=== PATIENT | male | born 1935 | race Caucasian/White ===

== ENCOUNTER 2019-06-24 09:38 | Observation (INO) | payer MEDICARE, OTHER ==
--- NOTE | 2019-06-24 10:00 | ED ---
Shortness of Breath - HPI Summary HPI Summary: 84-year-old male with a significant past medical history of hypertension, type 2 diabetes who is currently a PUI for Covid-19 presents to the emergency department today complaining of increased shortness of breath over the past few weeks. Patient states his breathing is acutely worse today. patient complains of fatigue, nonproductive cough, 9 pound weight gain in the past several months. Patient states at rest his breathing is controlled however with exertion he becomes significantly short of breath. Patient denies fevers, sore throat, nasal congestion, chest pain, bone pain, pain with urination, nausea, vomiting, diarrhea. - History of Current Complaint Chief Complaint: EDShortnessOfBreath Time Seen by Provider: 06/24/19 09:40 Hx Obtained From: Patient Onset/Duration: Gradual Onset Timing: Constant Current Severity: Mild Dyspnea At: Exertion Aggravating Factors: Movement Alleviating Factors: Upright Position Associated Signs & Symptoms: Cough (Nonproductive) - Allergy/Home Medications Allergies/Adverse Reactions: Allergies Allergy/AdvReac Type Severity Reaction Status Date / Time No Known Allergies Allergy Verified 05/30/15 07:07 Home Medications: Home Medications Allopurinol [Zyloprim] 300 mg PO DAILY 05/21/15 [History Confirmed 06/24/19] Amlodipine Besylate [Norvasc-] 10 mg PO DAILY 05/21/15 [History Confirmed ] Atorvastatin* [Lipitor 40 MG*] 40 mg PO DAILY 06/24/19 [History Confirmed ] Cholecalciferol TAB* [Vitamin D TAB*] 1 tab PO DAILY 06/24/19 [History Confirmed 06/24/19] Folic Acid 0.4 mg PO DAILY 06/24/19 [History Confirmed 06/24/19] Sitagliptin Phosphate [Januvia] 100 mg PO DAILY 06/24/19 [History Confirmed 06/09] Tamsulosin CAP* [Flomax CAP*] 0.4 mg PO DAILY 06/24/19 [History Confirmed ] Telmisartan/Hydrochlorothiazid [Telmisartan-Hctz 80-25 mg Tab] 1 tab PO DAILY [History Confirmed 06/24/19] glyBURIDE TAB* [Diabeta TAB*] 10 mg PO DAILY 06/24/19 [History Confirmed ] metFORMIN* [Glucophage 500 MG TAB *] 1,000 mg PO BID 06/24/19 [History Confirmed 06/24/19] PMH/Surg Hx/FS Hx/Imm Hx Endocrine/Hematology History: Reports: Hx Diabetes - TYPE 2 Cardiovascular History: Reports: Hx Hypertension - CONTROL WITH MEDS Denies: Hx Pacemaker/ICD History: Denies: Hx Renal Disease Musculoskeletal History: Reports: Other Musculoskeletal History - DEGENERATIVE DISC DISEASE Sensory History: Reports: Hx Cataracts - BILATERAL, Hx Contacts or Glasses - GLASSES Denies: Hx Hearing Aid Opthamlomology History: Reports: Hx Cataracts - BILATERAL, Hx Contacts or Glasses - GLASSES Psychiatric History: Denies: Hx Panic Disorder - Cancer History Cancer Type, Location and Year: [facility] - Surgical History Surgery Procedure, Year, and Place: TONSILECTOMY. HEMORROIDECTOMY. MELONOMA REMOVED FROM [facility] - 2011 Hx Anesthesia Reactions: No Infectious Disease History: No Infectious Disease History: Denies: Traveled Outside the [place] in Last 30 Days - Social History Alcohol Use: None Substance Use Type: Reports: None Smoking Status (MU): Former Smoker Type: Cigarettes Have You Smoked in the Last Year: No Review of Systems Constitutional: Negative Eyes: Negative ENT: Negative Cardiovascular: Negative Positive: Shortness Of Breath, Cough Gastrointestinal: Negative Genitourinary: Negative Musculoskeletal: Negative Skin: Negative Neurological/Mental Status: Negative Psychological: Normal All Other Systems Reviewed And Are Negative: Yes Physical Exam - Summary Physical Exam Summary: Patient is in no acute distress. Patient is able to speak with no accessory muscle use in full and broken sentences at rest. No wheezing or stridor is noted. Trachea midline. Patient is acyanotic. There is rales noted in the lower lung bases bilaterally with diminished breath sounds in the upper lobes. No wheezing noted. Triage Information Reviewed: Yes Vital Signs On Initial Exam: Initial Vitals Temp Pulse Resp BP Pulse Ox 98.1 F 94 18 127/65 96 06/24/19 09:53 06/24/19 09:53 06/24/19 09:53 06/24/19 09:53 06/24/19 09:53 Vital Signs Reviewed: Yes Appearance: Positive: Well-Appearing, No Pain Distress, Well-Nourished Skin: Positive: Warm, Skin Color Reflects Adequate Perfusion Eyes: Positive: EOMI, CLAUDETTE ENT: Positive: Hearing grossly normal Respiratory/Lung Sounds: Positive: Breath Sounds Present, Decreased Breath Sounds, Rales. Negative: Stridor, Tracheal Deviation, Wheezes, Unable to speak in full sentences Cardiovascular: Positive: RRR, S1, S2 Abdomen Description: Positive: Nontender, Soft. Negative: Distended, Guarding Bowel Sounds: Positive: Present Musculoskeletal: Positive: Strength/ROM Intact Neurological: Positive: Sensory/Motor Intact, Alert, Oriented to Person Place, Time, Normal Gait, Facial Symmetry, Speech Normal Psychiatric: Positive: Normal, Affect/Mood Appropriate AVPU Assessment: Alert Procedures - Sedation Patient Received Moderate/Deep Sedation with Procedure: No Diagnostics - Vital Signs Vital Signs Temp Pulse Resp BP Pulse Ox 06/24/19 09:53 98.1 F 94 18 127/65 96 - Laboratory Result Diagrams: 06/24/19 10:06 06/24/19 10:06 Lab Statement: Any lab studies that have been ordered have been reviewed, and results considered in the medical decision making process. Course/Dx - Course Course Of Treatment: Patient was evaluated in the emergency department today for shortness of breath. Vitals noted stable. No evidence of STEMI. Normal sinus rhythm at a rate of 95 bpm. There is a noted right bundle-branch block as well as multiple PVCs. No T-wave inversions noted. No prior EKGs available for comparison. Chest xray shows no active cardiopulmonary disease. Labs returned showing no definitive white blood cell count of 5.5. There is mild anemia noted with an H&H of 11.4/34. Lactic acid 1.1. Troponin 0.01. No indication of cardiac insult. BUN 34, creatinine 1.74 suggestive of dehydration. BNP 196 which could suggest early heart failure. Hospitalist, Dr. Albert was consulted who agreed to consult on the patient. After consult hospitalist team agreed to admit patient for further evaluation and management. - Diagnoses Differential Diagnosis/HQI/PQRI: Positive: Airway Obstruction, CHF, COPD Exacerbation, ID, Pneumonia, Pulmonary Edema Provider Diagnoses: Shortness of breath - Physician Notifications Discussed Care of Patient With: Ashley Albert Instructed by Provider To: Admit As Inpatient Admit/Transition Orders Completed By ED Provider: No Discharge ED - Sign-Out/Discharge Documenting (check all that apply): Patient Departure - Discharge Plan Condition: Stable Disposition: ADMITTED TO [facility] - Billing Disposition and Condition Condition: STABLE Disposition: Admitted to [facility]
[2019-06-24 10:24] LABS: ABS Basophils 0.1 10^3/ul (0-0.2); ABS Eosinophils 0.2 10^3/ul (0-0.6); ABS Lymphocytes 0.5 10^3/ul (1.0-4.8); ABS Monocytes 0.5 10^3/ul (0-0.8); ABS Neutrophils 4.3 10^3/ul (1.5-7.7); Eosinophil % 3.5 %; Hematocrit 34 % (42-52); Hemoglobin 11.4 g/dL (14.0-18.0); Lymphocyte % 9.4 %; Mean Corpuscular HGB Conc 33 g/dL (31-36); Mean Corpuscular Hemoglobin 31 pg (27-31); Mean Corpuscular Volume 93 fL (80-94); Mean Platelet Volume 10.6 fL (7.4-10.4); Platelet Count 101 10^3/uL (150-450); Red Blood Count 3.65 10^6 /uL (4.18-5.48); Red Cell Distribution Width 15 % (10-15); White Blood Count 5.5 10^3/uL (3.5-10.8)
--- OUTSIDE RECORDS SUMMARY | 2019-06-24 10:27 | XMS REPORT | Summary of Care ---
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 Merry Andrews MD Primary Care Provider Reason for Visit Reason Comments Fatigue Encounter Details Date Type Department Care Team Description 06/23/2019 Office Visit [facility], Malaise and fatigue ( Primary Dx); Practice Merry Garcia MD Weakness; [address] Shortness of breath; [place] [address] [place] [address] Type 2 diabetes mellitus with retinopathy, without long-term current use of insulin, macular edema presence unspecified, unspecified laterality, unspecified retinopathy severity (HCC); [phone] Essential hypertension; Gout, unspecified cause, unspecified chronicity, unspecified site; Thrombocytopenia (HCC); Mild chronic anemia Allergies No Known Allergiesdocumented as of this encounter (statuses as of 06/23/2019) Medications Medication Sig Dispensed Refills Start Date End Date Status VITAMIN D, Take 1,000 Units 0 Active CHOLECALCIFEROL, PO by mouth. Glucose Blood In Vitro 1 Strip by In 25 Each 3 05/21/2018 Active Strip Vitro route TWICE DAILY. amLodipine (NORVASC) 10 TAKE ONE TABLET 90 Tab 3 09/21/2018 Active MG Oral Tab BY MOUTH EVERY DAY FOLIC ACID PO Take by mouth. 0 Active metFORMIN (GLUCOPHAGE) TAKE TWO TABLETS 360 Tab 2 03/08/2019 Active 500 MG Oral Tab TWO TIMES A DAY Telmisartan-HCTZ 80-25 TAKE ONE TABLET 90 Tab 0 06/06/2019 Active MG Oral TabIndications: BY MOUTH EVERY Essential hypertension DAY JANUVIA 100 MG Oral TAKE ONE TABLET 90 Tab 0 06/06/2019 Active TabIndications: Type 2 BY MOUTH EVERY diabetes mellitus DAY without complication, without long-term current use of insulin (HCC) Tamsulosin HCl (FLOMAX) TAKE TWO CAPSULES 180 Cap 0 06/06/2019 Active 0.4 MG Oral BY MOUTH EVERY CapIndications: Lower DAY urinary tract symptoms allopurinol (ZYLOPRIM) TAKE ONE TABLET 90 Tab 0 06/06/2019 Active 300 MG Oral BY MOUTH EVERY TabIndications: Gout, DAY unspecified cause, unspecified chronicity, unspecified site glipiZIDE (GLUCOTROL TAKE ONE TABLET 180 Tab 0 06/06/2019 Active XL) 10 MG Oral TABLET BY MOUTH TWICE A SR 24 HRIndications: DAY Type 2 diabetes mellitus without complication, without long-term current use of insulin (HCC) atorvastatin (LIPITOR) TAKE ONE TABLET 180 Tab 0 06/06/2019 Active 40 MG Oral BY MOUTH EVERY TabIndications: DAY Hyperlipidemia, unspecified hyperlipidemia type documented as of this encounter (statuses as of 06/23/2019) Active Problems Problem Noted Date HTN (hypertension) 02/01/2014 DM (diabetes mellitus), type 2 02/01/2014 Gout 02/01/2014 Meniere's disease of right ear 02/01/2014 Dermatophytoses 02/01/2014 Overview: Chronic of groin area Mild chronic anemia 02/01/2014 Anemia Overview: followed by Dr. Calvo per records from previous pcp Mild nonproliferative diabetic retinopathy Overview: follows with Dr. Barrett in [place]. 10/22/16 Hyperlipidemia Melanoma documented as of this encounter (statuses as of 06/23/2019) Immunizations Name Administration Dates Next Due Pneumococcal Conjugate(13 Valent) 08/18/2018 TDAP Vaccine 05/12/2017 documented as of this encounter Social History Tobacco Use Types Packs/Day Years Used Date Former Smoker Smokeless Tobacco: Current User Chew Comments: 20 years of pipe Alcohol Use Drinks/Week oz/Week Comments No Sex Assigned at Date Recorded Not on file documented as of this encounter Last Filed Vital Signs Not on filedocumented in this encounter Patient Instructions Patient InstructionsMerry Andrews MD - 06/23/2019 2:40 PM EDTPlease have laboratory tests, a chest xray and EKG done at my office. Please call for an appointment if my staff has not called you. I will send you results when in. Rest, stay hydrated. Please go to the [facility] mobile unit for Covid testing due to your malaise, fatigue, and shortness of breath. Instructions are below. Please go to the ER for any severe or persistent chest pain or heaviness, shortness of breath, any concerns about your heart or about pneumonia. Covid-19 Testing can be done by [facility] mobile unit for people who qualify. It is by appointment only. This is located at the Shops at [facility] parking lot in front of the old [address]. You must call the call center first to answer screening questions: [phone]. They will then give you instructions and an appointment time. Prior to going you need to register on line at [email or web address] documented in this encounter Progress Notes Merry Andrews MD - 06/23/2019 2:40 PM EDT Chief Complaint: Jatinder Garcia is a 84-y.o. male who presents for Virtual Visit for weakness. He is a prior Dr Galarza patient and new to me today. Visit conducted via: Computer Video and audio interactive virtual visit . In our efforts to minimize the spread of COVID-19 in our community, amongst our patients, healthcarestaff and providers, we have implemented virtual visits with our patients. No vital signs, physical exam or in-office diagnostics were completed during this visit. These items may be accomplished during subsequent visits. Any vital signs listed were provided by the patient on their home monitor. History of Present Illness/ROS: Patient is being evaluated today in a Virtual Visit, for which the patient consented by signing up and signing in for this visit. Patient called the office today complaining of: "Patient says he has been feeling tired with activity the past week Admits he has not been very active, has gained a few pounds the past month Denies fever, chills, nausea, vomiting, diarrhea Says he has been feeling intermittent, mild chest tightness and SOB with activity Denies contact with any persons positive for Covid 19 Trying to drink more water the past couple of days Has DM II -- checked BS yesterday morning, 160 -- this is alittle higher than normal Agreed to do virtual visit with Dr. Andrews this afternoon Transferred call to nurse to schedule virtual appointment Silvia Varela PA-C" ? ?He is diabetic, last saw Dr Galarza 02/15/2020, On metformin, glipizide and januvia Patient reports 2 or so weeks of fatigue, feeling weak, dyspnea on exertion with chest tightness taking deep breaths some days. None today but had it yesterday. He denies any chest pain otherwise. He has some malaise. His glucoses usually are good but were running 250 range last week. Improved this week. He is not sure why BP in pharmacy 2 weeks ago was 110/64 He has been home for the most part, but did go to the [facility] center last week Review of Systems - General ROS: positive for - fatigue and malaise negative for - chills or fever ENT ROS: negative for - nasal congestion or sore throat Respiratory ROS: positive for - shortness of breath and tightness or heaviness taking a deep breath,worsens with exertion negative for - cough or hemoptysis Cardiovascular ROS: positive for - dyspnea on exertion and chest tightness with deep breaths. No discomfort today, it is intermittent over the last 2 weeks or so, perhaps more. Prior to this he could walk on his treadmill easily but not the last 2 weeks. negative for - edema Gastrointestinal ROS: negative for - change in bowel habits, diarrhea or nausea/ vomiting Neurological ROS: no TIA or stroke symptoms positive for - general weakness described more as easy fatigue negative for - focal weakness, headache, numbness. Lab Results Component Value Date GLYCO 6.9 (H) 02/14/2019 GLYCO 6.8 (H) 08/18/2018 GLYCO 6.7 (H) 02/15/2018 Office Visit on 02/14/2019 Component Date Value Ref Range Status ? Uric Acid 02/14/2019 5.3 3.5 - 8.5 MG/DL Final ? WBC Count 02/14/2019 7.74 4.23 - 9.07 K/uL Final Methodology was changed 03/25/2018. Please note updated reference range and units. ? RBC Count 02/14/2019 4.22* 4.30 - 5.89 M/UL Final ? Hemoglobin 02/14/2019 13.1* 13.7 - 17.5 g/dL Final ? Hematocrit 02/14/2019 40.8 40.1 - 51.0 % Final ? MCV 02/14/2019 96.7* 79.0 - 92.2 FL Final ? MCH 02/14/2019 31.0 25.7 - 32.2 PG Final ? MCHC 02/14/2019 32.1* 32.3 - 36.5 g/dL Final ? Platelet Count 02/14/2019 119* 163 - 337 K/uL Final ? MPV 02/14/2019 12.9* 9.4 - 12.4 FL Final ? RDW 02/14/2019 13.5 11.6 - 14.4 % Final ? Glycohemoglobin A1C 02/14/2019 6.9* <=5.6 % Final Normal*: <=5.6% Pre Diabetes* Risk: 5.7-6.4% Diabetes* Risk: >=6.5% Glycemic Goals for Adult Diabetes*: <7.0% *(Adult Ranges)Canadian Diabetes Association, Standards of Medical Care in Diabetes, 2018 ? Sodium 02/14/2019 141 134 - 145 mmol/L Final ? Potassium 02/14/2019 3.7 3.5 - 5.1 mmol/L Final ? Chloride 02/14/2019 102 98 - 107 mmol/L Final ? CO2 02/14/2019 29 22 - 30 mmol/L Final ? Calcium 02/14/2019 9.8 8.3 - 10.1 mg/dl Final ? Albumin 02/14/2019 4.3 3.5 - 5.0 g/dl Final ? BUN 02/14/2019 28* 9 - 20 mg/dl Final ? Creatinine 02/14/2019 1.1 0.8 - 1.5 mg/dl Final ? Glucose 02/14/2019 208* 70 - 99 mg/dl Final ? Total Protein 02/14/2019 7.6 6.3 - 8.2 g/dl Final ? Total Bilirubin 02/14/2019 0.6 0.0 - 1.1 MG/DL Final ? AST 02/14/2019 29 17 - 59 U/L Final ? ALT 02/14/2019 31 21 - 72 U/L Final ? Alkaline Phosphatase 02/14/2019 78 40 - 150 U/L Final ? eGFR 02/14/2019 >60 See Interpretation Below ml/min/1.73ml Sq Final Estimated GFR Interpretation: Above 60ml/min/1.73m2 = Normal Renal Function 30-59 ml/min/1.73m2 = Stage 3 Chronic Kidney Disease 15-29 ml/min/1.73m2 = Stage 4 Chronic Kidney Disease Less than 15 ml/min/1.73m2 = Stage 5 Chronic Kidney Disease The GFR value is calculated using the Modification of Diet in Renal Disease ( MDRD) Study Equation which can be found at: https://www.kidney.org/content/xpya-ronpa-blqndoup ? BUN/Creatinine Ratio 02/14/2019 25* 6 - 22 RATIO Final ? Anion Gap 02/14/2019 10 3 - 11 mmol/L Final ? A/G Ratio 02/14/2019 1.3 0.8 - 2.0 ratio Final Past Medical History: Diagnosis Date ? Anemia followed by Dr. Calvo per records from previous pcp ? Diabetes mellitus (HCC) ? Essential (primary) hypertension ? Gout ? Hyperlipidemia ? Leukopenia ? Lyme disease ? Melanoma (HCC) ? Meniere's disease of right ear ? Mild nonproliferative diabetic retinopathy (HCC) follows with Dr. Barrett in [place]. 10/22/16 History reviewed. No pertinent surgical history. Current Outpatient Medications: ? allopurinol (ZYLOPRIM) 300 MG Oral Tab, TAKE ONE TABLET BY MOUTH EVERY DAY, Disp: 90 Tab, Rfl: 0 ? amLodipine (NORVASC) 10 MG Oral Tab, TAKE ONE TABLET BY MOUTH EVERY DAY , Disp: 90 Tab, Rfl:3 ? atorvastatin (LIPITOR) 40 MG Oral Tab, TAKE ONE TABLET BY MOUTH EVERY DAY, Disp: 180 Tab, Rfl: 0 ? FOLIC ACID PO, Take by mouth., Disp: , Rfl: ? glipiZIDE (GLUCOTROL XL) 10 MG Oral TABLET SR 24 HR, TAKE ONE TABLET BY MOUTH TWICE A DAY, Disp: 180 Tab, Rfl: 0 ? Glucose Blood In Vitro Strip, 1 Strip by In Vitro route TWICE DAILY., Disp: 25 Each, Rfl: 3 ? JANUVIA 100 MG Oral Tab, TAKE ONE TABLET BY MOUTH EVERY DAY, Disp: 90 Tab, Rfl: 0 ? metFORMIN (GLUCOPHAGE) 500 MG Oral Tab, TAKE TWO TABLETS TWO TIMES A DAY, Disp: 360 Tab, Rfl: 2 ? Tamsulosin HCl (FLOMAX) 0.4 MG Oral Cap, TAKE TWO CAPSULES BY MOUTH EVERY DAY, Disp: 180 Cap, Rfl: 0 ? Telmisartan-HCTZ 80-25 MG Oral Tab, TAKE ONE TABLET BY MOUTH EVERY DAY , Disp: 90 Tab, Rfl: 0 ? VITAMIN D, CHOLECALCIFEROL, PO, Take 1,000 Units by mouth., Disp: , Rfl : No Known Allergies Social History Tobacco Use Smoking Status Former Smoker Smokeless Tobacco Current User ? Types: Chew Tobacco Comment 20 years of pipe Social History Substance and Sexual Activity Sexual Activity Not on file Lifestyle Physical activity ? Days per week: Not on file ? Minutes per session: Not on file Social History Social History Narrative Retired. Runs [email or web address] in summer. Spending time with grand kids. Gardening, yard work. Fishing. PHYSICAL EXAMINATION: Vital per patient home monitor: There were no vitals taken for this visit. Physical Examination: General appearance - alert, well appearing, and in no distress Mental status - alert, oriented to person, place, and time, normal mood, behavior, speech, dress, motor activity, and thought processes The remainder of the physical exam could not be done because this is a virtual visit. ASSESSMENT/PLAN: ICD-9-CM ICD-10-CM 1. Malaise and fatigue 780.79 R53.81 C-REACTIVE PROTEIN R53.83 THYROID STIMULATING HORMONE SEDIMENTATION RATE 2. Weakness 780.79 R53.1 3. Shortness of breath 786.05 R06.02 XR CHEST 2 VIEW PA AND LATERAL (STANDARD) AMBULATORY 12 LEAD EKG (GLOBAL) 4. Type 2 diabetes mellitus with retinopathy, without long-term current use of insulin, macular edema presence unspecified, unspecified laterality, unspecified retinopathy severity (HCC) 250.50 E11.319 GLYCOHEMOGLOBIN A1C 362.01 LIPID PROFILE MICROALBUMIN, RANDOM URINE W/ CREATININE 5. Essential hypertension 401.9 I10 COMPREHENSIVE METABOLIC PANEL W/REFLEX MAGNESIUM 6. Gout, unspecified cause, unspecified chronicity, unspecified site 274.9 M10.9 7. Thrombocytopenia (HCC) 287.5 D69.6 8. Mild chronic anemia 285.9 D64.9 CBC WITH DIFFERENTIAL VITAMIN B12 / FOLATE Patient Instructions Please have laboratory tests, a chest xray and EKG done at my office. Please call for an appointment if my staff has not called you. I will send you results when in. Rest, stay hydrated. Please go to the [facility] mobile unit for Covid testing due to your malaise, fatigue, and shortness of breath. Instructions are below. Please go to the ER for any severe or persistent chest pain or heaviness, shortness of breath, any concerns about your heart or about pneumonia. Covid-19 Testing can be done by [facility] mobile unit for people who qualify. It is by appointment only. This is located at the Shops at [facility] parking lot in front of the old [address]. You must call the call center first to answer screening questions: . They will then give you instructions and an appointment time. Prior to going you need to register on line at [email or web address] Time spent: 25 minutes Author: Merry Andrews MD 06/23/2019 15:50 documented in this encounter Plan of Treatment Date Type Specialty Care Team Description 06/24/2019 Ancillary Procedure Radiology 06/24/2019 Nurse/Clinical Support Internal Medicine 06/24/2019 Lab Internal Medicine 07/25/2019 Office Visit Family Practice Merry Andrews MD [address] [address] [phone] Name Type Priority Associated Diagnoses Order Schedule GLYCOHEMOGLOBIN A1C Lab Routine Type 2 diabetes Expected: mellitus with 06/23/2019 retinopathy, without (Approximate), long-term current use Expires: 06/22/2020 of insulin, macular edema presence unspecified, unspecified laterality, unspecified retinopathy severity (HCC) COMPREHENSIVE METABOLIC Lab Routine Essential hypertension Expected: PANEL W/REFLEX MAGNESIUM 06/23/2019 (Approximate), Expires: 12/20/2019 LIPID PROFILE Lab Routine Type 2 diabetes Expected: mellitus with 06/23/2019 retinopathy, without (Approximate), long-term current use Expires: 12/20/2019 of insulin, macular edema presence unspecified, unspecified laterality, unspecified retinopathy severity (HCC) MICROALBUMIN, RANDOM URINE Lab Routine Type 2 diabetes Expected: W/ CREATININE mellitus with 06/23/2019 retinopathy, without (Approximate), long-term current use Expires: 12/20/2019 of insulin, macular edema presence unspecified, unspecified laterality, unspecified retinopathy severity (HCC) CBC WITH DIFFERENTIAL Lab Routine Mild chronic anemia Expected: 06/23/2019 (Approximate), Expires: 06/22/2020 VITAMIN B12 / FOLATE Lab Routine Mild chronic anemia Expected: 06/23/2019 (Approximate), Expires: 06/22/2020 C-REACTIVE PROTEIN Lab Routine Malaise and fatigue Expected: 06/23/2019 (Approximate), Expires: 06/22/2020 THYROID STIMULATING Lab Routine Malaise and fatigue Expected: HORMONE 06/23/2019 (Approximate), Expires: 06/22/2020 XR CHEST 2 VIEW PA AND Imaging Routine Shortness of breath Expected: LATERAL (STANDARD) 06/23/2019, Expires: 06/22/2020 AMBULATORY 12 LEAD EKG EKG Routine Shortness of breath Ordered: 06/23/2019 (GLOBAL) SEDIMENTATION RATE Lab Routine Malaise and fatigue Expected: 06/23/2019 (Approximate), Expires: 06/22/2020 Health Maintenance Due Date Last Done Comments MEDICARE ANNUAL WELLNESS 12/18/2018 12/18/2017, 11/17/2016 VISIT HEMOGLOBIN A1C 08/15/2019 02/14/2019, 08/18/2018, 02/15/2018, Additional history exists DEPRESSION SCREENING 08/19/2019 08/18/2018 PNEUMOCOCCAL 65+YRS (2 of 2 08/19/2019 08/18/2018 - PPSV23) Diabetic Eye Exam 10/13/2019 10/12/2017, 10/12/2017, 08/22/2016 INFLUENZA VACCINE (Season 11/22/2019 Ended) FALL RISK ASSESSMENT 02/15/2020 02/14/2019, 02/14/2019 FOOT EXAM 02/15/2020 Postponed from 1955 (Other) HIV SCREENING 12/01/2025 Postponed from 1952 (Patient refused) ZOSTER IMMUNIZATION SERIES 11/29/2026 Postponed from (1 of 2) 1987 (Patient refused) DTaP/Tdap/Td Vaccines (2 - 05/12/2027 05/12/2017 Tdap) HEPATITIS A IMMUNIZATION Aged Out No longer eligible SERIES based on patient's age to complete this topic HPV IMMUNIZATION SERIES Aged Out No longer eligible based on patient's age to complete this topic MENINGOCOCCAL VACCINE IMM Aged Out No longer eligible based on patient's age to complete this topic documented as of this encounter Goals Goal Patient Goal Associated Recent Patient-Stated? Author Type Problems Progress Blood Pressure Blood Pressure 110/60 No Miguelangel Galarza < 140/90 (02/14/2019 DO Jose 10:28 AM EST) Note: This is an individualized treatment (blood pressure) goal for Jatinder Garcia: Displayed above (on the left) is your goal for blood pressure control. Your most recent blood pressure is also shown above, on the right. You should try to achieve blood pressures that are lower than your goal listed above (on the left). Glycohemoglobin A1c < 7.0 Diabetes 6.9 (02/14/2019 10:36 AM No Miguelangel Galarza DO EST) Note: This is an individualized treatment (diabetes control, HgbA1C) goal for Jatinder Garcia: Displayed above is your progress towards your HgbA1C goal. Your goal is shown above (on the left); your most recent HgbA1C is shown on the right. Note that lower numbers are better. Keep immunizations current Lifestyle No Miguelangel Galarza DO Note: This is an individualized lifestyle goal for Jatinder Garcia: Please be sure to keep up-to-date on recommended immunizations. For example, this would include a yearly influenza vaccine. Immunization status can be seen by looking at the Health Maintenance sections of your [facility], Plan of Care, and any After Visit Summaries. Take all prescribed medications as directed Self-management No Miguelangel Galarza DO Note: This is an individualized self-management goal for Jatinder Garcia: Please take all prescribed medications as directed. 1. Do not skip doses. If you cannot afford your medications, talk with your doctor. 2. Use a pill reminder system such as a pill box if needed. Your pharmacist can help you with this. 3. Contact your Pharmacy 5 days before your medication runs out. If you cannot take your medications for any reasons, talk with your doctor. 4. Please bring all of your medication bottles and inhalers (or a list of all your medications/inhalers) with you to every visit. Potential barriers to meeting all of your care plan goals will continue to be addressed on an ongoing basis. documented as of this encounter Results Not on filedocumented in this encounter Visit Diagnoses Diagnosis Malaise and fatigue Other malaise and fatigue Weakness Other malaise and fatigue Shortness of breath Type 2 diabetes mellitus with retinopathy, without long-term current use of insulin, macular edema presence unspecified, unspecified laterality, unspecified retinopathy severity (HCC) Essential hypertension Unspecified essential hypertension Gout, unspecified cause, unspecified chronicity, unspecified site Thrombocytopenia (HCC) Thrombocytopenia, unspecified Mild chronic anemia Anemia, unspecified documented in this encounter Insurance Payer Benefit Plan / Subscriber ID Effective Dates Phone Address Type Group MEDICARE MEDICARE PART A & B [id number] 2002-Present Medicare UHC EMPIRE UHC-EMPIRE PLAN [id number] 2016-Present [place] (Work) documented as of this encounter
[2019-06-24 10:41] LABS: Albumin 3.7 g/dL (3.2-5.2); Albumin/Globulin Ratio 1.2 (1-3); BUN/Creatinine Ratio 19.5 (8-20); C Reactive Protein 9.19 mg/L (<8.01); Calcium 9.3 mg/dL (8.6-10.3); EGFR African American 45.7 (>60); EGFR Non-African American 37.8 (>60); Potassium 3.7 mmol/L (3.5-5.0); Total Bilirubin 0.8 mg/dL (0.2-1.0); Total Protein 6.7 g/dL (6.4-8.9)
[2019-06-24 10:42] LABS: Troponin I 0.01 ng/mL (<0.03)
[2019-06-24] MEDS ORDERED: Furosemide IV* 10 MG/ML 10 ML VIAL (100 MG) IV ONE (12:13)
[2019-06-24] MEDS ORDERED: Al Hydrox/Mg Hydrox/Simet LIQ* 30 ML UDC PO PRN (12:15)
[2019-06-24] MEDS ORDERED: Senna TAB 8.6 mg* TAB PO PRN (12:15)
[2019-06-24] MEDS ORDERED: Acetaminophen TAB* 325 MG PO PRN (12:15)
[2019-06-24] MEDS ORDERED: Enoxaparin(*) 40 MG/0.4 ML SYR SUBCUT SCH (13:00)
[2019-06-24 13:06] LABS: Urine Appearance Clear; Urine Bilirubin Negative (Negative); Urine Blood Negative (Negative); Urine Color Yellow; Urine Glucose Negative (Negative); Urine Ketones Negative (Negative); Urine Nitrite Negative (Negative); Urine Protein Negative (Negative); Urine Specific Gravity 1.012 (1.010-1.030); Urine Urobilinogen Negative (Negative)
[2019-06-24] MEDS ORDERED: Potassium Chlor TAB* 20 MEQ TAB.ER PO ONE (13:33)
[2019-06-24] MEDS ORDERED: Dextrose 50% Syringe 50 ML* 25 GM/50 ML SYRINGE IV PUSH PRN (13:34)
--- NOTE | 2019-06-24 14:13 | ECHO ---
*[facility]* [place] [address] Fax #: [phone] Transthoracic Echocardiogram Patient: Jatinder Garcia : 1935 Study Date: 06/24/2019 Age: 84 Gender: M HR: 78 bpm Height: 70 in /177.8 cm BSA: 2.11 m^2 Weight: 204.6 lb /93 kg BMI: 29.4 kg/m^2 *[employer] Administrator: Siobhan Farr [facility] *Referring Physician: * O'Grazyna Esposito *Reading Physician: * Morteza Carmona MD Indications: SOB. History: Risk factors: Hypertension. Diabetes mellitus. Conclusions Summary: - Left ventricle: Systolic function is normal. The estimated ejection fraction is 60-65%. Wall motion is normal; there are no regional wall motion abnormalities. - Right ventricle: The cavity size is normal. Wall thickness is mildly increased. Study data: Transthoracic echocardiogram. Procedure: Transthoracic echocardiography was performed. Image quality was adequate. Complete 2D, spectral Doppler, and color flow Doppler. Location: Emergency department. Patient status: Inpatient. Patient room number: 18. No prior study is available for comparison. Rhythm: Normal sinus rhythm with PVC's. Findings Left ventricle: The cavity size is normal. Wall thickness is mildly increased. Systolic function is normal. The estimated ejection fraction is 60-65%. Wall motion is normal; there are no regional wall motion abnormalities. Doppler parameters are consistent with abnormal left ventricular relaxation (grade 1 diastolic dysfunction). Right ventricle: The cavity size is normal. Wall thickness is mildly increased. Systolic function is normal. Left atrium: The atrium is at the upper limits of normal in size. Right atrium: The atrium is mildly dilated. Mitral valve: The leaflets are mildly thickened. There is no evidence of stenosis. There is no significant regurgitation. Aortic valve: The annulus is mildly calcified. The leaflets are mildly thickened. There is no evidence of stenosis. There is no significant regurgitation. Tricuspid valve: The leaflets are normal thickness. There is no evidence of stenosis. There is no significant regurgitation. Pulmonic valve: Not well visualized. There is no significant regurgitation. Aorta: Aortic root: The aortic root is appears normal. Ascending aorta: The ascending aorta is poorly visualized. Aortic arch: The aortic arch is appears normal. Pericardium: A trace pericardial effusion is identified. Pulmonary arteries: Systolic pressure can not be accurately estimated. Systemic veins: Inferior vena cava: The vessel is dilated. There is (< 50%) respiratory change in the IVC dimension. Measurements Left ventricle Value Ref Right atrium continued Value Ref JANI, LAX 4.4 cm 4.2 - 5.8 ML dim, ES, A4C (H) 4.9 cm 2.6 - 4.4 ESD, LAX 3.4 cm 2.5 - 4.0 Estimated RAP 8 mm Hg --------- FS, LAX (L) 23 % 25 - 43 PW, ED, LAX (H) 1.3 cm 0.6 - 1.0 Aortic valve Value Ref E', lat lindsay, TDI (L) 8.4 cm/sec >=10.0 Lindsay diam, ED 2.1 cm - -------- E/e', lat lindsay, 12 Peak v, S 1.65 m/sec ---- ----- TDI VTI, S 33.2 cm --------- E', med lindsay, TDI 9.3 cm/sec >=7.0 Mean grad, S 7.0 mm Hg - -------- E/e', med lindsay, 11 Peak grad, S 11.0 mm Hg ---- ----- TDI E', avg, TDI 8.9 cm/sec Mitral valve Value Ref E/e', avg, TDI 11 <=14 Peak E 0.99 m/sec - -------- Peak A 0.89 m/sec --------- LVOT Value Ref Decel time 90 ms --------- Peak saleem, S 0.74 m/sec Peak grad, D 3.9 mm Hg --------- Mean grad, S 1 mm Hg Peak E/A ratio 1.1 --------- Ventricular septum Value Ref Aortic root Value Ref IVS, ED (H) 1.1 cm 0.6 - 1.0 Root diam 3.5 cm <4.2 Root max diam/bsa, 1.7 cm/m^2 1.3 - 2.1 Right ventricle Value Ref ED AW thickness, ED (H) 0.7 cm 0.1 - 0.5 JANI, LAX 2.9 cm Aortic arch Value Ref JANI minor ax, 3.4 cm 1.9 - 3.5 Arch diam 3.3 cm --------- A4C mid Arch diam/bsa 1.6 cm/m^2 --------- Left atrium Value Ref Decending aorta Value Ref AP dim, ES (H) 4.20 cm 3.00 - Stephanie peak saleem 0.71 m/sec --------- 4.00 ML dim, A4C 4.5 cm Inferior vena cava Value Ref SI dim, A4C 5.7 cm Diam 2.3 cm --------- Vol/bsa, ES, A/L 34 ml/m^2 16 - 34 Right atrium Value Ref SI dim, ES (H) 5.8 cm 3.4 - 5.3 Legend: (L) and (H) kallie values outside specified reference range. Prepared and electronically signed by Morteza Carmona MD 06/24/2019 14:11
--- NOTE | 2019-06-24 15:12 | HP ---
CC: Dr. Andrews * HISTORY AND PHYSICAL: DATE OF ADMISSION: 06/24/19 ATTENDING PHYSICIAN WHILE IN THE HOSPITAL: Dr. Ashley Albert * (dictated by JORGE Naidu). PRIMARY CARE PROVIDER: Dr. Andrews. CHIEF COMPLAINT: Progressive shortness of breath with exertion. HISTORY OF PRESENT ILLNESS: Mr. Garcia is an 84-year-old white male with past medical history significant for hypertension, diabetes, gout, and BPH, who presents to the emergency department today due to progressive shortness of breath with exertion. The patient started having shortness of breath with exertion about 2 weeks ago. It was initially when he was doing more vigorous activity like going up and down the stairs carrying groceries; however, on most recent days, it is including just when he is walking across his house. For this reason, he scheduled an appointment with his primary care office to discuss this and they advised him to go to the emergency department. He tells me that he feels chest tightness when he is short of breath, but that resolves when his shortness of breath resolves, which at this point is taking about 5 minutes after he each time he has been walking around. He denies cough, fevers , sore throat, nasal congestion, abdominal pain, nausea, vomiting, dizziness, lightheadedness, changes in vision. He states that he felt chills a few days ago, but not rigorous, and when he put in on his robes, he felt better. PAST MEDICAL HISTORY: 1. Hypertension. 2. Diabetes mellitus type 2. 3. Gout. 4. BPH. 5. Hyperlipidemia. PAST SURGICAL HISTORY: None. MEDICATIONS: Home medications: 1. Vitamin D 1 tablet p.o. daily. 2. Lipitor 40 mg p.o. daily. 3. Telmisartan/hydrochlorothiazide 80 mg/25 mg 1 tablet p.o. daily. 4. Glyburide 10 mg p.o. daily. 5. Metformin 1000 mg p.o. b.i.d. 6. Sitagliptin 100 mg p.o. daily. 7. Amlodipine 10 mg p.o. daily. 8. Folic acid 0.4 mg p.o. daily. 9. Tamsulosin 0.4 mg p.o. daily. 10. Allopurinol 300 mg p.o. daily. ALLERGIES: No known drug allergies. FAMILY HISTORY: The patient's father of stroke in his 60s. He had a history of diabetes. His mother of breast cancer. SOCIAL HISTORY: The patient lives with his . He smoked cigarettes for approximately 20 years and smoked a pipe for approximately 15 years. He denies alcohol use at this time, but previously used to drink regularly, but has been abstaining for the last 3 years. He denies illicit drug use. His surrogate medical decision maker should he need one is his , Adeola Diop. REVIEW OF SYSTEMS: AN 11-point review of systems was completed and all pertinent positives and negatives are above in the HPI. All other systems are negative. PHYSICAL EXAMINATION GENERAL: An overweight, elderly white male, lying in the hospital bed, appearing comfortable, in no distress. VITAL SIGNS: Temperature 98.1, heart rate 94, respiratory rate 18, oxygen saturation 90% on room air, but 88% on room air with ambulation, blood pressure 127/65. HEENT: Head: Normocephalic and atraumatic. Eyes: PERRL. Sclerae anicteric. ENT: Mucous membranes moist. LUNGS: Very faint crackles in the bilateral bases. Otherwise, no wheezing or rhonchi. He is not using accessory muscle with respiration. CARDIO: Regular rate and rhythm without murmurs, rubs, or gallops. ABDOMEN: Soft, nontender, nondistended. EXTREMITIES: Trace edema to the bilateral lower extremities pretibially. No clubbing or cyanosis. NEURO: The patient is alert and oriented x3. No focal deficits. Gait is within normal limits. SKIN: Warm, dry, and intact. PERTINENT STUDIES/LABORATORY DATA: White blood cell count 5.5, hemoglobin 11.4 , hematocrit 34, platelet count 101. Sodium 137, potassium 3.7, chloride 105, carbon dioxide 24, anion gap 8, BUN 34, creatinine 1.74, glucose 269, lactic acid 1.1, calcium 9.3. LFTs are unremarkable. CRP is 9.19. BNP is 196. Urinalysis is unremarkable. Chest x-ray per my interpretation appears there is bilateral interstitial pulmonary edema. The radiologist report impression is no active cardiopulmonary disease. EKG, it appears the patient has bifascicular block and PVCs and normal sinus rhythm at 95 beats per minute. I have no prior EKG for comparison. An EKG was taken at his primary care office today and was sent over and appears similar. ASSESSMENT AND PLAN: Mr. Garcia is an 84-year-old white male with past medical history significant for hypertension, diabetes mellitus type 2, BPH, and gout, who presents to the emergency department today due to progressive dyspnea on exertion. The patient will be admitted for: 1. Acute hypoxic respiratory failure. I believe this is secondary to congestive heart failure. I will order a transthoracic echocardiogram and one time dose of IV Lasix at this time and then I will schedule 40 mg of Lasix twice a day IV. The patient is hypoxic at rest and with exertion and I will put him on 2 L of nasal cannula and I will replace his potassium orally. I will order telemetry, strict I's and O's, and daily weights as well. The patient has gained approximately 9 pounds in about a month. Additionally, because he is having shortness of breath and he did report chills, but he is afebrile in the hospital, it would be of benefit to rule him out for COVID-19 as well and this is pending. 2. Diabetes. The patient takes metformin and glyburide at home. I am going to check hemoglobin A1c and I will order fingerstick, low carbohydrates in his diet, and lispro sliding scale while he is in the hospital. 3. Abnormal EKG. It appears the patient's EKG is demonstrating a bifascicular block. I do not have previous EKG prior to today to compare as the EKG that I got the recent was from today. I am going to put in an order to request an EKG from prior as the patient was seeing Dr. Galarza prior to switching to Dr. Andrews and this would be of benefit to determine if this maybe is contributing to his current state, and as previously mentioned, he will be on telemetry. 4. Hypertension. The patient is currently normotensive. I will continue his home amlodipine, hydrochlorothiazide, and NANI inhibitor. If his transthoracic echocardiogram shows that he is in fact with new heart failure, it would be a benefit for him to start a beta-regan and potentially one of these either hydrochlorothiazide or amlodipine may need to be discontinued for his blood pressure to tolerate. 5. BPH. I will be continuing the patient's home Flomax. 6. Hyperlipidemia. I will be continuing the patient's home atorvastatin. 7. FEN: The patient will have a carbohydrate consistent diet. I am replacing potassium as I described above with oral potassium. No need for IV fluids at this time, and in fact, we will try to avoid them in the setting of possible heart failure. 8. DVT prophylaxis. The patient has a VTE risk score of 3 and I will be ordering Lovenox. 9. Code status. The patient is a full code. TIME SPENT: Approximately 45 minutes was spent on this admission, approximately half this time was spent at bedside evaluating the patient and discussing the plan of care. This case has been reviewed by my attending, Dr. Ashley Albert, and she agrees with this plan of care. JORGE NAIDU [id number]/CPS #: [id number] MTDD
[2019-06-24] MEDS: Furosemide IV* 10 MG/ML VIAL (40 MG) IV SLOW PU SCH (16:53)
[2019-06-24] MEDS: Insulin LISPRO* 1 UNITS UNIT SUBCUT SCH (17:27)
[2019-06-25 06:51] LABS: BUN/Creatinine Ratio 18.7 (8-20); Calcium 9.3 mg/dL (8.6-10.3); EGFR African American 46.6 (>60); EGFR Non-African American 38.5 (>60); Potassium 3.4 mmol/L (3.5-5.0)
[2019-06-25 07:34] LABS: ABS Eosinophils 0.3 10^3/ul (0-0.6); ABS Lymphocytes 0.7 10^3/ul (1.0-4.8); ABS Monocytes 0.5 10^3/ul (0-0.8); ABS Neutrophils 2.7 10^3/ul (1.5-7.7); Eosinophil % 6.5 %; Hematocrit 32 % (42-52); Hemoglobin 11.2 g/dL (14.0-18.0); Lymphocyte % 16.6 %; Mean Corpuscular HGB Conc 35 g/dL (31-36); Mean Corpuscular Hemoglobin 32 pg (27-31); Mean Corpuscular Volume 91 fL (80-94); Mean Platelet Volume 9.8 fL (7.4-10.4); Platelet Count 85 10^3/uL (150-450); Red Blood Count 3.51 10^6 /uL (4.18-5.48); Red Cell Distribution Width 15 % (10-15); White Blood Count 4.2 10^3/uL (3.5-10.8)
[2019-06-25] MEDS: Furosemide IV* 10 MG/ML VIAL (40 MG) IV SLOW PU SCH (07:46)
[2019-06-25] MEDS: Insulin LISPRO* 1 UNITS UNIT SUBCUT SCH ×2 (07:46→12:43)
[2019-06-25] MEDS ORDERED: Potassium Chlor TAB* 20 MEQ TAB.ER PO ONE (08:43)
[2019-06-25] MEDS ORDERED: amLODIPine TAB* 5 MG PO SCH (09:00)
[2019-06-25] MEDS ORDERED: Losartan TAB* 25 MG PO SCH (09:00)
[2019-06-25] MEDS ORDERED: Hydrochlorothiazide TAB* 25 MG PO SCH (09:00)
[2019-06-25] MEDS ORDERED: Allopurinol TAB* 300 MG PO SCH (09:00)
[2019-06-25] MEDS ORDERED: Tamsulosin CAP* 0.4 MG PO SCH (09:00)
[2019-06-25] MEDS ORDERED: Atorvastatin* 40 MG TAB PO SCH (09:00)
[2019-06-25 12:24] VITALS: BP 114/44
--- NOTE | 2019-06-25 13:48 | DS ---
CC: Dr. Andrews DISCHARGE SUMMARY: DATE OF ADMISSION: 06/24/19 DATE OF DISCHARGE: 06/25/19 PRIMARY CARE PROVIDER: Dr. Andrews. DISCHARGE DIAGNOSES: 1. Dyspnea due to acute diastolic congestive heart failure. 2. The patient is tested for COVID and is pending at the time of this dictation. SECONDARY DIAGNOSES: 1. Elevated creatinine at 1.7 and the patient with unknown baseline. 2. Hypertension. 3. Gout. 4. Diabetes type 2. 5. Hyperlipidemia. MEDICATIONS AT DISCHARGE: New medications include Lasix 20 mg every other day with potassium chloride 20 mEq every other day. Rest of the remaining medications are unchanged from admission and include: 1. Glyburide 10 mg daily. 2. Vitamin D3 1000 units daily. 3. Atorvastatin 40 mg daily. 4. Telmisartan/hydrochlorothiazide 80/25 one tablet daily. 5. Metformin 1000 mg b.i.d. 6. Januvia 100 mg daily. 7. Amlodipine 10 mg daily. 8. Folic acid 0.4 mg daily. 9. Flomax 0.4 mg daily. 10. Allopurinol 300 mg daily. LABORATORY DATA AND STUDIES PERFORMED DURING THE HOSPITAL STAY: On 06/25/19, white blood cell count of 4.2, hemoglobin of 11.2, hematocrit of 32, and platelets of 85. Please note the patient has chronic thrombocytopenia. Sodium was 141, potassium 3.4, chloride 106, carbon dioxide 28, BUN 32, creatinine 1.71. Please note the patient's liver function tests on admission were unremarkable. C-reactive protein was 9.19, troponin of 0.01 at admission. Urinalysis was unremarkable. COVID testing is pending at the time of dictation. Transthoracic echocardiogram obtained on 06/24/19 showed EF of 60% to 65% with no regional wall motion abnormalities. The cavity of right ventricle is normal with wall thickness mildly increased, left systolic function is normal, and wall motion is normal. The mitral valve with mildly calcified annulus with no evidence of stenosis or regurgitation. Aortic valve with no problems noted. Chest x-ray on admission, impression: "No active cardiopulmonary disease." HOSPITALIZATION COURSE: Ame Garcia is an 84-year-old male who is a rather poor historian with a history of hypertension and diabetes, controlled with oral medications, who presented to the hospital complaining of shortness of breath with exertion for the past 2 weeks as well as unintentional weight gain of 9 pounds. The patient came into the emergency department sent from the patient's primary care provider's office with EKG that matched our EKG, it showed bifascicular block. His brain natriuretic peptide was 196 and his troponin was negative. His transthoracic echocardiogram failed to demonstrate any marked abnormalities, showed normal EF and no wall motion abnormality. His troponin was negative. The patient was treated with 2 doses of IV Lasix and diuresed 1500 mL total. His dyspnea on exertion resolved. His oxygenation improved, currently he is on room air and comfortable. He never developed chest pain throughout the past several weeks of his symptoms. Please note that the patient was noted to have creatinine of 1.7 with known baseline. His EKG also showed bifascicular block, and I do not have any EKGs in the system to compare it to apart from the primary care provider's office EKG from the same day. At this point, due to the pandemic, the patient is afraid to be in the hospital and he wishes to go home. I spoke with his and voiced may concerns about the patient's impaired creatinine and abnormal EKG. The patient's also wishes for the patient to go home. We tried to call the patient's primary care provider's office today, but it is Thursday and the office is closed. We cannot obtain any records. At this point, the patient is aware that he needs to follow up in regards to his abnormal renal function, abnormal EKG with his primary care provider. He is going to be placed on Lasix on every other day, recommended cardiac diet. He is asked to check a basic metabolic panel prior to seeing his primary care provider next week for a followup, which he is recommended to call for. The patient also likely would benefit from cardiology followup as well due to his abnormal EKG. I discussed with the patient the possibility of cardiac stress test, which he should discuss with his primary as outpatient. Once again, the patient was offered to stay longer in the hospital for further management his symptoms of the abnormalities noted above, but requested to be discharged and wished to follow up with those abnormalities with his primary care provider. Physical exam at the time of discharge, blood pressure of 158/63, heart rate of 95 and regular, respiratory rate 18, oxygen saturation 94%, temperature of 98.4. General: The patient is a very pleasant 84-year-old male who is in no acute distress. The patient is alert and oriented x3. HEENT: Head: Atraumatic, normocephalic. Eyes: Pupils are equal and reactive to light and accommodation. Oropharynx clear. Mucosa moist. Neck: Supple. No JVD. No bruits bilaterally. Cardiovascular: Regular rate and rhythm. No murmur. Respiratory: Fine crackles at bilateral bases, otherwise clear. Abdomen: Soft , nontender. Bowel sounds present in all 4 quadrants. Extremities: There is no edema. Pulses are +2 bilaterally. There is no clubbing and no cyanosis. On neuro evaluation, the patient has presbycusis. He is oriented x3 with no evidence of anxiety or depression. Motor strength is 5/5 bilaterally. Sensation grossly intact. Cranial nerves II through XII grossly intact. Laboratory data pending at the time of dictation is COVID PCR test. At discharge, the patient is recommended to follow up with Dr. Andrews within the next 4 to 7 days and have a basic metabolic panel drawn before seeing his primary. The patient was recommended to likely be referred to Cardiology for further evaluation due to his abnormal EKG and likely cardiac stress test. The patient's COVID report is still pending. He was advised in regards of isolation precautions. He is advised not to do any strenuous exercise until seen for followup by either his primary care provider who could clear him or Cardiology. Please note that the patient was offered to stay for further evaluation of the abnormalities mentioned above but requested to be discharged and he is hemodynamically stable and his hypoxemia resolved. Please note that this is a short summary of the patient's hospitalization. Please refer to further medical records for details. TIME SPENT: Approximately 35 minutes was spent on the patient's discharge. CONDITION AT DISCHARGE: STABLE DISPOSITION AT DISCHARGE: HOME [id number]/[facility] #: [id number] [facility]
== END 2019-06-25 12:52 | disposition home or self-care (01) ==
LOC: ED 09:38 → MED 12:15
PROVIDERS: ADMIT Hospitalist; ATTEND Internal Medicine
DX: I11.0 Hypertensive heart disease with heart failure (principal); I50.31 Acute diastolic (congestive) heart failure; R94.4 Abnormal results of kidney function studies; R94.31 Abnormal electrocardiogram [ECG] [EKG]; M10.9 Gout, unspecified; E11.9 Type 2 diabetes mellitus without complications; E78.5 Hyperlipidemia, unspecified; N40.0 Benign prostatic hyperplasia without lower urinary tract symptoms; I45.10 Unspecified right bundle-branch block; Z79.899 Other long term (current) drug therapy; Z79.84 Long term (current) use of oral hypoglycemic drugs; Z87.891 Personal history of nicotine dependence
CPT/HCPCS: 36415; 71045; 80048; 80053; 81003; 83036; 83605; 83880; 84484; 85025; 86140; 87635; 93005; 93306; 96372; 96374; 96376; 99285; A9270-GY; G0378; J1650; J1940